=== PATIENT | male | born 1960 | race Caucasian/White ===

== ENCOUNTER 2017-01-17 10:29 | Emergency (ER) | payer MEDICARE, OTHER ==
[~2017-01-17 10:29] MED LIST: AMIO200T PO; AMIO400T2 PO; AMIT10 PO; ASPI81TA11 PO; ASPI81TA82 PO; ATOR40TA PO; ATOR40TA49 PO; BACL10TA PO; GABA600T PO; LORTA10 PO; METO25 PO; MULT-34 PO; NICO21DI24 TD; NICO21T; TAB-TAB PO; ULTR50TA PO
[2017-01-17 10:30] VITALS: BP 138/76; PULSE 82; RESP 20; TEMP 98.8; O2SAT 99
[2017-01-17] MEDS ORDERED: AMIO200T PO (10:41)
[2017-01-17] MEDS ORDERED: AMIT10TA6 PO (10:41)
[2017-01-17] MEDS ORDERED: ASPI81CH PO (10:41)
[2017-01-17] MEDS ORDERED: TRAM50TA PO (10:41)
[2017-01-17] MEDS ORDERED: ATOR40TA16 PO (10:41)
[2017-01-17] MEDS ORDERED: METO25TA3 PO (10:41)
[2017-01-17] MEDS ORDERED: GABA600T PO (10:41)
[2017-01-17] MEDS ORDERED: CEPH-460 PO (10:44)
[2017-01-17] MEDS ORDERED: BACT800T5 PO (10:44)
--- NOTE | 2017-01-17 10:44 | PD ---
HPI Chief Complaint: Skin Problem Time Seen by Provider: 10:42 Travel History International Travel<30 days: No Contact w/Intl Traveler<30days: No Traveled to known affect area: No History of Present Illness HPI 56-year-old male presents to emergency Department with complaint of a possible spider bite to his right lower leg that occurred on . He is concerned it is infected. He denies fever, vomiting. He says it's been draining clear, bloody drainage. Denies paresthesias, loss of sensation, decreased range of motion, decreased strength to the affected extremity. Says the area is painful. He is up-to-date on tetanus vaccination. Has been taking Tylenol for the pain with good relief. Has not taken any other medications or any other treatments to alleviate his symptoms. No known allergies. Has no medical complaints. No modifying factors or associated signs and symptoms. PFSH Past Medical History Arthritis: Yes Asthma: Yes ( A CHILD) Autoimmune Disease: No Blood Disorders: No Anxiety: No Depression: No Heart Rhythm Problems: No Cancer: No Cardiac Catheterization: No Cardiovascular Problems: No High Cholesterol: No Chemotherapy: No Chest Pain: No Congestive Heart Failure: No COPD: No Cerebrovascular Accident: No Diabetes: No Diminished Hearing: No Endocrine: No GERD: No Genitourinary: No Headaches: Yes Hiatal Hernia: No Immune Disorder: No Implanted Vascular Access Dvce: Yes Kidney Stones: No Musculoskeletal: Yes Neurologic: Yes Psychiatric: No Reproductive: No Respiratory: Yes Migraines: No Radiation Therapy: No Renal Failure: No Seizures: No Sickle Cell Disease: No Sleep Apnea: No Thyroid Disease: No Ulcer: No Past Surgical History Abdominal Surgery: No AICD: No Arteriovenous Shunt: No Body Medical Devices: PINS IN FEMUR Cardiac Surgery: No Coronary Artery Bypass Graft: No Ear Surgery: No Endocrine Surgery: No Eye Surgery: No Genitourinary Surgery: No Gynecologic Surgery: No Insulin Pump: No Joint Replacement: No Oral Surgery: No Pacemaker: No Thoracic Surgery: No Other Surgery: Yes Social History Alcohol Use: Yes (6 PACK 3X A WEEK) Tobacco Use: Yes ( ONE PPD X 20 YEARS) Substance Use: Yes (PT REPORTED PREVIOUS USE OF COCAINE.) Allergies-Medications (Allergen,Severity, Reaction): Coded Allergies: No Known Allergies (Verified , 01/17/17) Reported Meds & Prescriptions Reported Meds & Active Scripts Active Bactrim DS (Sulfamethoxazole-Trimethoprim) 800-160 Mg Tab 1 Tab PO BID 10 Days Keflex (Cephalexin) 500 Mg Cap 500 Mg PO Q8H 10 Days Reported Amitriptyline (Amitriptyline HCl) 10 Mg Tab 10 Mg PO HS Amiodarone (Amiodarone HCl) 200 Mg Tab 200 Mg PO BID Aspirin 81 Mg Chew 81 Mg PO ONCE Atorvastatin (Atorvastatin Calcium) 40 Mg Tab 40 Mg PO HS Gabapentin 600 Mg Tab 600 Mg PO TID Metoprolol Tartrate 25 Mg Tab 25 Mg PO BID Tramadol (Tramadol HCl) 50 Mg Tab 50 Mg PO Q6H PRN Review of Systems Except as stated in HPI: all other systems reviewed are Neg Physical Exam Narrative GENERAL: Well-nourished, well-developed male patient, in no acute distress; afebrile, nontoxic-appearing SKIN: Warm and dry. Approximately 1 cm in diameter scabbed area noted to the right rod with minimal amount of bloody drainage; no purulent drainage noted; no surrounding erythema or edema. Right lower extremity supple and non-tense and 2+ pedal pulse and sensory intact without erythema or edema. HEAD: Atraumatic. Normocephalic. EYES: Pupils equal and round. No scleral icterus. No injection or drainage. ENT: Mucosa pink and moist. Airway patent. NECK: Trachea midline. CARDIOVASCULAR: Regular rate. RESPIRATORY: No accessory muscle use. GASTROINTESTINAL: Flat. MUSCULOSKELETAL: No obvious deformities. No clubbing. No cyanosis. No edema. NEUROLOGICAL: Awake and alert. Oriented 3. No obvious cranial nerve deficits. Motor grossly within normal limits. Normal speech. PSYCHIATRIC: Appropriate mood and affect; insight and judgment normal. Data Data Last Documented VS Vital Signs Date Time Temp Pulse Resp B/P Pulse Ox O2 Delivery O2 Flow Rate FiO2 01/17/17 10:39 16 01/17/17 10:30 98.8 82 138/76 99 Room Air MDM Medical Decision Making Medical Screen Exam Complete: Yes Emergency Medical Condition: Yes Medical Record Reviewed: Yes Differential Diagnosis Abrasion, wounds, wound infection, insect bite, abscess Narrative Course 56-year-old male with approximately a 1 cm wound to the right rod that does not appear to be infected. The area is draining minimal amount of bloody drainage. Wound culture pending. The patient is afebrile and nontoxic- appearing. He denies fever, vomiting. Up-to-date on tetanus vaccination. Patient is concerned of infection and is requesting prescriptions for antibiotics. I discussed signs of infection and antibiotics and the patient verbalized understanding and agreement. I will prescribe antibiotic for patient 's request. Keflex and Bactrim prescribed for home. Patient verbalizes understanding and agreement with treatment plan. Patient is medically cleared and stable for discharge. Discussed reasons to return to the emergency department. Instructed patient to follow up with primary care provider. Patient agrees with treatment plan. The patients vital signs are stable and the patient is stable for outpatient follow-up and treatment. Patient discharged home, stable and in no acute distress. Diagnosis Primary Impression: Wound of right lower extremity Qualified Code: S81.801A - Wound of right lower extremity, initial encounter Referrals: Primary Care Physician Patient Instructions: Acute Wound Care (ED), General Instructions Departure Forms: Tests/Procedures, Work Release Enter return to work date: Jan 17, 2017 Additional Instructions: Antibiotics as prescribed Keep area clean and dry Ibuprofen or Tylenol as instructed and as needed for pain and inflammation Follow-up with primary care provider Return to the emergency department immediately with worsening of symptoms Med/Other Pt SpecificInfo: Prescription(s) given Scripts Sulfamethoxazole-Trimethoprim (Bactrim DS)800-160 Mg Tab1 Tab PO BID 10 Days Ref 0 Prov:Tiffany Moses 01/17/17 Cephalexin (Keflex)500 Mg [id number] Mg PO Q8H 10 Days Ref 0 Prov:Tiffany Moses 01/17/17 Disposition: 01 DISCHARGE HOME Condition: Stable Tiffany Moses Jan 17, 2017 10:44
[2017-01-17 10:55] VITALS: BP 120/81; TEMP 97.7
== END 2017-01-17 10:52 | disposition home or self-care (01) ==
LOC: NEPK 10:29
DX: S81.801A Unspecified open wound, right lower leg, initial encounter (principal); X58.XXXA Exposure to other specified factors, initial encounter; F17.210 Nicotine dependence, cigarettes, uncomplicated
CPT/HCPCS: 86403; 87070; 99284

== ENCOUNTER 2017-01-20 14:33 | Emergency (ER) | payer MEDICARE, MEDICAID ==
[~2017-01-20] VITALS: Ht 180.3 cm; Wt 79.5 kg
[~2017-01-20 14:33] MED LIST changes: -AMIO400T2 PO; -AMIT10 PO; +AMIT10TA6 PO; +ASPI81CH PO; -ASPI81TA11 PO; -ASPI81TA82 PO; -ATOR40TA PO; +ATOR40TA16 PO; -ATOR40TA49 PO; -BACL10TA PO; +BACT800T5 PO; +CEPH-460 PO; -LORTA10 PO; -METO25 PO; +METO25TA3 PO; -MULT-34 PO; -NICO21DI24 TD; -NICO21T; -TAB-TAB PO; +TRAM50TA PO; -ULTR50TA PO
[2017-01-20 14:34] VITALS: BP 158/80; PULSE 92; RESP 16; TEMP 99.7; O2SAT 99
[2017-01-20] MEDS ORDERED: SODIUM CHLOR 0.9% 1000 ML INJ 1,000 ML IV SCH (16:14)
[2017-01-20 16:15] VITALS: BP 145/82; PULSE 85; RESP 18; TEMP 100.3; O2SAT 96
[2017-01-20] MEDS ORDERED: KETOROLAC TROMETHAMINE 30 MG/ML (IVP) VIAL IV PUSH ONE (16:15)
--- NOTE | 2017-01-20 16:16 | PD ---
HPI Chief Complaint: Bite or Sting Time Seen by Provider: 16:06 Travel History International Travel<30 days: No Contact w/Intl Traveler<30days: No Traveled to known affect area: No History of Present Illness HPI 56-year-old male presents for evaluation of redness to the anterior right rod region. He reports that he noticed a wound there several days ago. He believes that he may been bitten by a spider although he does not recall any bug bites or puncture wounds. He was seen here in January 17 for wound culture was performed, this grew out group A strep. He was started on Bactrim and Keflex however he did not get these prescriptions filled until this morning. He has not taken Bactrim and Keflex one time. He presents today because he has had worsening pain is an aching pain in his right lower extremity which is worse with walking. He has had no fevers or chills at home. No significant past medical history. He has no other complaints. PFSH Past Medical History Arthritis: Yes Asthma: Yes ( A CHILD) Autoimmune Disease: No Blood Disorders: No Anxiety: No Depression: No Heart Rhythm Problems: No Cancer: No Cardiac Catheterization: No Cardiovascular Problems: No High Cholesterol: No Chemotherapy: No Chest Pain: No Congestive Heart Failure: No COPD: No Cerebrovascular Accident: No Diabetes: No Diminished Hearing: No Endocrine: No GERD: No Genitourinary: No Headaches: Yes Hiatal Hernia: No Immune Disorder: No Implanted Vascular Access Dvce: Yes Kidney Stones: No Musculoskeletal: Yes Neurologic: Yes Psychiatric: No Reproductive: No Respiratory: Yes Migraines: No Radiation Therapy: No Renal Failure: No Seizures: No Sickle Cell Disease: No Sleep Apnea: No Thyroid Disease: No Ulcer: No Past Surgical History Abdominal Surgery: No AICD: No Arteriovenous Shunt: No Body Medical Devices: PINS IN FEMUR Cardiac Surgery: No Coronary Artery Bypass Graft: No Ear Surgery: No Endocrine Surgery: No Eye Surgery: No Genitourinary Surgery: No Gynecologic Surgery: No Insulin Pump: No Joint Replacement: No Oral Surgery: No Pacemaker: No Thoracic Surgery: No Other Surgery: Yes Social History Alcohol Use: Yes (6 PACK 3X A WEEK) Tobacco Use: Yes ( ONE PPD X 20 YEARS) Substance Use: Yes (PT REPORTED PREVIOUS USE OF COCAINE.) Allergies-Medications (Allergen,Severity, Reaction): Coded Allergies: No Known Allergies (Verified , 01/20/17) Reported Meds & Prescriptions Reported Meds & Active Scripts Active Bactrim DS (Sulfamethoxazole-Trimethoprim) 800-160 Mg Tab 1 Tab PO BID 10 Days Keflex (Cephalexin) 500 Mg Cap 500 Mg PO Q8H 10 Days Reported Amitriptyline (Amitriptyline HCl) 10 Mg Tab 10 Mg PO HS Amiodarone (Amiodarone HCl) 200 Mg Tab 200 Mg PO BID Aspirin 81 Mg Chew 81 Mg PO ONCE Atorvastatin (Atorvastatin Calcium) 40 Mg Tab 40 Mg PO HS Gabapentin 600 Mg Tab 600 Mg PO TID Metoprolol Tartrate 25 Mg Tab 25 Mg PO BID Tramadol (Tramadol HCl) 50 Mg Tab 50 Mg PO Q6H PRN Review of Systems Except as stated in HPI: all other systems reviewed are Neg Physical Exam Narrative GENERAL: Well-developed well-nourished male in no acute distress SKIN: Warm and dry. Erythematous changes noted to the anterior right rod region. There is some central excoriation and necrosis of the skin. HEAD: Atraumatic. Normocephalic. EYES: Pupils equal and round. No scleral icterus. No injection or drainage. ENT: No nasal bleeding or discharge. Mucous membranes pink and moist. NECK: Trachea midline. No JVD. CARDIOVASCULAR: Regular rate and rhythm. No murmur appreciated. RESPIRATORY: No accessory muscle use. Clear to auscultation. Breath sounds equal bilaterally. GASTROINTESTINAL: Abdomen soft, non-tender, nondistended. Hepatic and splenic margins not palpable. MUSCULOSKELETAL: No obvious deformities. No edema. NEUROLOGICAL: Awake and alert. No obvious cranial nerve deficits. Motor grossly within normal limits. Normal speech. Data Data Last Documented VS Vital Signs Date Time Temp Pulse Resp B/P Pulse Ox O2 Delivery O2 Flow Rate FiO2 01/20/17 16:15 100.3 85 18 96 Room Air 01/20/17 14:34 158/80 Orders Lactic Acid Sepsis Protocol (01/20/17 16:14) Complete Blood Count With Diff (01/20/17 16:14) Basic Metabolic Panel (Bmp) (01/20/17 16:14) Tibia/Fibula (Ap/Lat) (01/20/17 ) Sodium Chlor 0.9% 1000 Ml Inj (Ns 1000 M (01/20/17 16:14) Ketorolac Inj (Toradol Inj) (01/20/17 16:15) Blood Culture (01/20/17 16:16) Cefazolin 2 Gm Premix (Ancef 2 Gm Premix (01/20/17 16:30) Labs Laboratory Tests Test 01/20/17 01/20/17 16:28 16:40 White Blood Count 15.5 TH/MM3 Red Blood Count 5.05 MIL/MM3 Hemoglobin 15.4 GM/DL Hematocrit 47.0 % Mean Corpuscular Volume 93.0 FL Mean Corpuscular Hemoglobin 30.5 PG Mean Corpuscular Hemoglobin 32.8 % Concent Red Cell Distribution Width 14.4 % Platelet Count 208 TH/MM3 Mean Platelet Volume 8.6 FL Neutrophils (%) (Auto) 77.3 % Lymphocytes (%) (Auto) 10.5 % Monocytes (%) (Auto) 9.8 % Eosinophils (%) (Auto) 1.9 % Basophils (%) (Auto) 0.5 % Neutrophils # (Auto) 11.9 TH/MM3 Lymphocytes # (Auto) 1.6 TH/MM3 Monocytes # (Auto) 1.5 TH/MM3 Eosinophils # (Auto) 0.3 TH/MM3 Basophils # (Auto) 0.1 TH/MM3 CBC Comment DIFF FINAL Differential Comment Sodium Level 135 MEQ/L Potassium Level 3.9 MEQ/L Chloride Level 100 MEQ/L Carbon Dioxide Level 27.9 MEQ/L Anion Gap 7 MEQ/L Blood Urea Nitrogen 10 MG/DL Creatinine 1.01 MG/DL Estimat Glomerular Filtration 76 ML/MIN Rate Random Glucose 102 MG/DL Calcium Level 9.2 MG/DL Lactic Acid Level 1.2 mmol/L MDM Medical Decision Making Medical Screen Exam Complete: Yes Emergency Medical Condition: Yes Medical Record Reviewed: Yes Differential Diagnosis Cellulitis, sepsis, osteomyelitis, erysipelas Narrative Course 56-year-old male who was seen here in January 17 presents now with worsening redness and pain to the right lower extremity. On examination his temperature is 100.3. He is slightly tachycardic. He unfortunately did not start the antibiotics until this morning secondary to financial restraints. The wound culture performed on January 17 has grown group A strep. The patient's lab work is been reviewed. Notable for leukocytosis with a WBC count of 15.5, MB is normal, lactic acid is within normal limits. It is reasonable to attempt to treat this patient has an outpatient, discussed signs and symptoms that would warrant returning to the emergency room for inpatient admission for IV antibiotics. He is agreeable with this plan. Blood cultures are currently pending and will be followed up on if positive. Diagnosis Primary Impression: Cellulitis of right lower extremity Additional Instructions: Take the antibiotics as prescribed. Warm compresses to the affected area several times a day 10 minutes at a time. If you develop evidence of worsening infection such as fevers, increasing redness, red streaks up the leg, return to the emergency room. Med/Other Pt SpecificInfo: No Change to Meds Disposition: 01 DISCHARGE HOME Condition: Stable Abhijeet Silvestre Jan 20, 2017 16:16
[2017-01-20] MEDS ORDERED: ceFAZolin 2 GM PREMIX 50 ML IV ONE (16:30)
--- NOTE | 2017-01-20 16:35 | RADRPT ---
EXAM DATE/TIME: 01/20/2017 16:18 [facility] COMPARISON: No previous studies available for comparison. INDICATIONS : Right tibia pain and insect bite infection. MEDICAL HISTORY : None. SURGICAL HISTORY : None. ENCOUNTER: Initial ACUITY: 4 - 6 days PAIN SCORE: 10/10 LOCATION: Right anterior middle tibia. FINDINGS: Two view examination of the right tibia demonstrates no evidence of fracture or dislocation. Bony mi neralization is normal. The soft tissue structures are intact. CONCLUSION: No acute disease. Estevan Trinidad MD on January 20, 2017 at 16:32 Board Certified Radiologist. This report was verified electronically.
[2017-01-20 17:03] LABS: AUTOMATED NEUTROPHIL # 11.9 TH/MM3 (1.8-7.7); BASOPHIL # 0.1 TH/MM3 (0-0.2); BASOPHIL % 0.5 % (0.0-2.0); EOSINOPHIL # 0.3 TH/MM3 (0-0.4); EOSINOPHIL % 1.9 % (0.0-4.0); HEMO FLAGS DIFF FINAL; LYMPH % 10.5 % (9.0-44.0); LYMPHOCYTE # 1.6 TH/MM3 (1.0-4.8); MEAN CORPUSCULAR HEMOGLOBIN 30.5 PG (27.0-34.0); MEAN CORPUSCULAR HGB CONC 32.8 % (32.0-36.0); MONO % 9.8 % (0.0-8.0); NEUT % 77.3 % (16.0-70.0); PLATELET COUNT 208 TH/MM3 (150-450); RED BLOOD COUNT 5.05 MIL/MM3 (4.50-5.90); RED CELL DISTRIBUTION WIDTH 14.4 % (11.6-17.2); WHITE BLOOD COUNT 15.5 TH/MM3 (4.0-11.0)
[2017-01-20 17:27] LABS: BICARBONATE 27.9 MEQ/L (21.0-32.0); POTASSIUM 3.9 MEQ/L (3.5-5.1)
[2017-01-20 18:11] VITALS: PULSE 78; O2SAT 98
[2017-01-20 18:42] VITALS: PULSE 80; RESP 18
== END 2017-01-20 18:42 | disposition home or self-care (01) ==
LOC: NEPD 14:33
DX: L03.115 Cellulitis of right lower limb (principal); B95.0 Streptococcus, group A, as the cause of diseases classified elsewhere; D72.829 Elevated white blood cell count, unspecified; F17.200 Nicotine dependence, unspecified, uncomplicated; Z87.39 Personal history of other diseases of the musculoskeletal system and connective tissue; Z86.69 Personal history of other diseases of the nervous system and sense organs
CPT/HCPCS: 73590; 80048; 83605; 85025; 87040; 96365; 96375; 99284; J0690; J1885; J7030

== ENCOUNTER 2017-07-29 20:54 | Emergency (ER) | payer MEDICARE, MEDICAID ==
[~2017-07-29 20:54] MED LIST changes: +ASPI-516 PO; -ASPI81CH PO
[2017-07-29 20:56] VITALS: BP 145/95; PULSE 74; RESP 16; TEMP 98; O2SAT 98
--- NOTE | 2017-07-29 21:49 | PD ---
HPI Chief Complaint: Skin Problem Time Seen by Provider: 21:48 Travel History International Travel<30 days: No Contact w/Intl Traveler<30days: No Traveled to known affect area: No History of Present Illness HPI Patient is a 57-year-old male presenting to emergency department for evaluation of bilateral foot pain. Patient states he was diagnosed with a foot fungus a few weeks ago, he was prescribed a powder which he states is not working in his rash has spread. Patient states his feet are painful, burning sensation. He describes it. His pain is a 7 out of 10. He denies any history of diabetes. He denies any alleviating factors, pain is exacerbated with movement. He denies a fever, chills, nausea, vomiting, chest pain or shortness of breath. PFSH Past Medical History Arthritis: Yes Asthma: Yes ( A CHILD) Autoimmune Disease: No Blood Disorders: No Anxiety: No Depression: No Heart Rhythm Problems: No Cancer: No Cardiac Catheterization: No Cardiovascular Problems: No High Cholesterol: No Chemotherapy: No Chest Pain: No Congestive Heart Failure: No COPD: No Cerebrovascular Accident: No Diabetes: No Diminished Hearing: No Endocrine: No Gastrointestinal Disorders: No GERD: No Genitourinary: No Headaches: Yes Hiatal Hernia: No Heparin Induced Thrombocytopen: No Hypertension: No Immune Disorder: No Implanted Vascular Access Dvce: Yes Kidney Stones: No Musculoskeletal: Yes Neurologic: Yes Psychiatric: No Reproductive: No Respiratory: Yes Migraines: No Radiation Therapy: No Renal Failure: No Seizures: No Sickle Cell Disease: No Sleep Apnea: No Thyroid Disease: No Ulcer: No Past Surgical History Abdominal Surgery: No AICD: No Arteriovenous Shunt: No Body Medical Devices: PINS IN FEMUR Cardiac Surgery: Yes Coronary Artery Bypass Graft: No Ear Surgery: No Endocrine Surgery: No Eye Surgery: No Genitourinary Surgery: No Gynecologic Surgery: No Insulin Pump: No Joint Replacement: No Neurologic Surgery: No Oral Surgery: No Pacemaker: No Thoracic Surgery: No Other Surgery: Yes Social History Alcohol Use: Yes (1 6 PK A WEEK) Tobacco Use: Yes (1/2 PPD) Substance Use: No (QUIT 2 MONTHS) Allergies-Medications (Allergen,Severity, Reaction): Coded Allergies: No Known Allergies (Verified , 01/20/17) Reported Meds & Prescriptions Reported Meds & Active Scripts Active Bactrim DS (Sulfamethoxazole-Trimethoprim) 800-160 Mg Tab 1 Tab PO BID 10 Days Keflex (Cephalexin) 500 Mg Cap 500 Mg PO Q8H 10 Days Reported Amitriptyline (Amitriptyline HCl) 10 Mg Tab 10 Mg PO HS Amiodarone (Amiodarone HCl) 200 Mg Tab 200 Mg PO BID Aspirin 81 Mg Chew 81 Mg PO ONCE Atorvastatin (Atorvastatin Calcium) 40 Mg Tab 40 Mg PO HS Gabapentin 600 Mg Tab 600 Mg PO TID Metoprolol Tartrate 25 Mg Tab 25 Mg PO BID Tramadol (Tramadol HCl) 50 Mg Tab 50 Mg PO Q6H PRN Review of Systems Except as stated in HPI: all other systems reviewed are Neg Musculoskeletal: Positive: Pain Skin: Positive Rash, Positive Itching Physical Exam Narrative GENERAL: Well-developed, well-nourished, alert male. SKIN: Warm and dry. Left foot with crusted lesions in between second and third toes. No erythema or induration noted. HEAD: Normocephalic. EYES: No scleral icterus. No injection or drainage. CARDIOVASCULAR: Regular rate RESPIRATORY: No increased work of breathing MUSCULOSKELETAL: No cyanosis, or edema. Data Data Last Documented VS Vital Signs Date Time Temp Pulse Resp B/P (MAP) Pulse Ox O2 Delivery O2 Flow Rate FiO2 12/17 20:56 98.0 74 16 145/95 (112) 98 Room Air MDM Medical Decision Making Medical Screen Exam Complete: Yes Emergency Medical Condition: Yes Interpretation(s) Vital Signs Date Time Temp Pulse Resp B/P (MAP) Pulse Ox O2 Delivery O2 Flow Rate FiO2 12/17 20:56 98.0 74 16 145/95 (112) 98 Room Air Differential Diagnosis Impetigo versus tinea versus dermatitis versus cellulitis versus other Narrative Course Patient is a 57-year-old male presenting for evaluation of foot rash. His vital signs are stable, patient is awaiting bed placement. Patient presented back to triage stating that he did not have time to wait, he needed to get back on the bus to go to [place]. Patient was encouraged to stay as his bed was nearly available. He stated that he would come back in the morning. AMA: The risks of leaving against medical advice without further evaluation treatment were discussed with the patient. These risks include cardiac dysfunction, cardiac dysrhythmia, possible heart attack, possible stroke or . The patient indicated understanding of these risks and appeared to have the capacity to make this decision. Diagnosis Primary Impression: Left against medical advice Vanda Bowden Jul 29, 2017 21:48
== END 2017-07-29 21:48 | disposition left against medical advice (07) ==
LOC: NED 20:54
DX: R21 Rash and other nonspecific skin eruption (principal); M19.90 Unspecified osteoarthritis, unspecified site; J45.909 Unspecified asthma, uncomplicated; F17.200 Nicotine dependence, unspecified, uncomplicated; Z79.82 Long term (current) use of aspirin; Z79.899 Other long term (current) drug therapy
CPT/HCPCS: 99281

== ENCOUNTER 2017-11-17 09:02 | Emergency (ER) | payer MEDICAID, MEDICARE, OTHER ==
[2017-11-17 09:09] VITALS: BP 124/63; PULSE 70; RESP 16; TEMP 98.1; O2SAT 97
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
[2017-11-17] MEDS ORDERED: NAPR500T2 PO (10:21)
[2017-11-17] MEDS ORDERED: MEDR4PAK PO (10:21)
--- NOTE | 2017-11-17 10:22 | PD ---
HPI Chief Complaint: Pain: Acute or Chronic Time Seen by Provider: 10:18 Travel History International Travel<30 days: No Contact w/Intl Traveler<30days: No Traveled to known affect area: No History of Present Illness HPI 57-year-old male presents to the emergency department with complaint of chronic left knee pain that worsened yesterday. Denies new or recent injury. Last had an MRI in 2008 and was told that nothing was wrong. Denies fever, vomiting. Denies paresthesias, loss of sensation, decreased range of motion, decreased strength to the affected extremity. Has been using a knee brace and a cane for support. Pain is worse with flexion. Better with the knee brace and assistance with a cane. Has been taking Tylenol and gabapentin for symptom management. Rates pain 01/17. Describes it as shooting pain. Primary care provider is Dr. Yoon. No known allergies. History of chronic back pain. Denies other significant past medical history. Has no other medical complaints. No other modifying factors or associated signs and symptoms. PFSH Past Medical History Arthritis: Yes Asthma: Yes ( A CHILD) Autoimmune Disease: No Blood Disorders: No Anxiety: No Depression: No Heart Rhythm Problems: No Cancer: No Cardiac Catheterization: No Cardiovascular Problems: No High Cholesterol: No Chemotherapy: No Chest Pain: No Congestive Heart Failure: No COPD: No Cerebrovascular Accident: No Coronary Artery Disease: Yes Diabetes: No Diminished Hearing: No Endocrine: No Gastrointestinal Disorders: No GERD: No Genitourinary: No Headaches: Yes Hiatal Hernia: No Heparin Induced Thrombocytopen: No Hypertension: No Immune Disorder: No Implanted Vascular Access Dvce: Yes Kidney Stones: No Musculoskeletal: Yes Neurologic: Yes Psychiatric: No Reproductive: No Respiratory: Yes Migraines: No Radiation Therapy: No Renal Failure: No Seizures: No Sickle Cell Disease: No Sleep Apnea: No Thyroid Disease: No Ulcer: No Tetanus Vaccination: < 5 Years Past Surgical History Abdominal Surgery: No AICD: No Arteriovenous Shunt: No Body Medical Devices: PINS IN FEMUR Cardiac Surgery: Yes (CABG X 5) Coronary Artery Bypass Graft: No Ear Surgery: No Endocrine Surgery: No Eye Surgery: No Genitourinary Surgery: No Gynecologic Surgery: No Insulin Pump: No Joint Replacement: No Neurologic Surgery: No Oral Surgery: No Pacemaker: No Thoracic Surgery: No Other Surgery: Yes Family History Family Myocardial Infarction: Yes Social History Alcohol Use: Yes (1 6 PK A WEEK) Tobacco Use: Yes (1/2 PPD) Substance Use: No (QUIT ) Allergies-Medications (Allergen,Severity, Reaction): Coded Allergies: No Known Allergies (Verified Adverse Reaction, Unknown, 11/17/17) Reported Meds & Prescriptions Reported Meds & Active Scripts Active Walker/Adult/Folding (Device) 1 Mis Mis Ea .XX DIRECTED Naproxen 500 Mg Tab 500 Mg PO BID PRN Medrol Dosepak (Methylprednisolone) 4 Mg Dspk 4 Mg PO DIRECTED Per Pharmacist direction Review of Systems Except as stated in HPI: all other systems reviewed are Neg Physical Exam Narrative GENERAL: Well-nourished, well-developed male patient, in no acute distress; afebrile, nontoxic-appearing SKIN: Warm and dry. HEAD: Atraumatic. Normocephalic. EYES: Pupils equal and round. No scleral icterus. No injection or drainage. ENT: Mucosa pink and moist. Airway patent. NECK: Trachea midline. CARDIOVASCULAR: Regular rate. RESPIRATORY: No accessory muscle use. MUSCULOSKELETAL: Left knee nonedematous, nonerythematous, and without ecchymosis ; full range of motion and flexion to 90; point tenderness to the lateral aspect and anterior aspect just below the patella; joint stable with negative drawer test; no obvious deformity. Left lower extremity is supple and non- tense with 2+ pedal pulse and sensory intact and without erythema or edema. Ambulatory in room with a limp to the left lower extremity. NEUROLOGICAL: Awake and alert. Oriented 3. No obvious cranial nerve deficits. Motor grossly within normal limits. Normal speech. PSYCHIATRIC: Appropriate mood and affect; insight and judgment normal. Data Data Last Documented VS Vital Signs Date Time Temp Pulse Resp B/P (MAP) Pulse Ox O2 Delivery O2 Flow Rate FiO2 11/17/17 09:09 98.1 70 16 124/63 (83) 97 Orders Orders Knee, Complete (4vws) (11/17/17 ) Ed Discharge Order (11/17/17 10:29) [facility] Medical Decision Making Medical Screen Exam Complete: Yes Emergency Medical Condition: Yes Medical Record Reviewed: Yes Differential Diagnosis Arthritis, bursitis, chronic knee pain Narrative Course 57-year-old male with chronic left knee pain with worsening yesterday. He has a knee brace in place and a cane for assistance. Left knee x-ray ordered in triage and concludes: Knee X-Ray 11/17/17 0000 Signed Impressions: Service Date/Time: Friday, November 17, 2017 09:25 - CONCLUSION: 1. No acute fracture or dislocation. 2. Mild to moderate degenerative changes involving the patellofemoral joint and mild degenerative changes involving the medial femoral tibial joint. 3. Tiny knee joint effusion. 4. Spurring at the insertion of the patellar ligament on the proximal tibia. Estevan Trinidad MD Patient provided a copy of the x-ray report. Medrol Dosepak, naproxen, walker for prescribed for home. Instructed patient to follow-up with orthopedics. Instructed patient to follow up with primary care provider. Patient verbalizes understanding and agreement with treatment plan. Patient is medically cleared and stable for discharge. Discussed reasons to return to the emergency department. Patient agrees with treatment plan. The patients vital signs are stable and the patient is stable for outpatient follow-up and treatment. Patient discharged home, stable and in no acute distress. Diagnosis Primary Impression: Left knee pain Qualified Codes: M25.562 - Pain in left knee Referrals: [facility] Orthopaedic Surgeon Primary Care Physician Patient Instructions: Arthritis (ED), Crutch Instructions (ED), General Instructions, Knee Pain (ED) Additional Instructions: Tylenol or ibuprofen as needed and as directed to reduce pain and inflammation Rest, ice, compress, and elevate extremity to decrease pain and inflammation Knee brace for support Crutches for support Avoid aggravating activity; increase activity as tolerated Follow-up with primary care provider Follow-up with orthopedics Return to the emergency department immediately with worsening symptoms Med/Other Pt SpecificInfo: Prescription(s) given Scripts Walker/Adult/Folding (Walker/Adult/Folding) 1 Mis Mis EA .XX DIRECTED, #1 0 Refills Prov: Tiffany Moses AUDIO VISUAL ARTS DIRECTOR 11/17/17 Naproxen (Naproxen) 500 Mg Tab 500 MG PO BID Y for PAIN SCALE 1 TO 10, #20 TAB 0 Refills Prov: Tiffany Moses AUDIO VISUAL ARTS DIRECTOR 11/17/17 Methylprednisolone Dosepak (Medrol Dosepak) 4 Mg Dspk 4 MG PO DIRECTED, #1 DSPK 0 Refills Per Pharmacist direction Prov: Tiffany Moses AUDIO VISUAL ARTS DIRECTOR 4/10/18 Disposition: 01 DISCHARGE HOME Condition: Stable Rassi,Tiffany K AUDIO VISUAL ARTS DIRECTOR Nov 17, 2017 10:22
[2017-11-17] MEDS ORDERED: WALKER/ADULT/FO1 MIS (10:28)
== END 2017-11-17 10:36 | disposition home or self-care (01) ==
LOC: NEPK 09:02
DX: M25.562 Pain in left knee (principal); M17.12 Unilateral primary osteoarthritis, left knee; M25.462 Effusion, left knee; M19.90 Unspecified osteoarthritis, unspecified site; J45.909 Unspecified asthma, uncomplicated; I25.10 Atherosclerotic heart disease of native coronary artery without angina pectoris; F17.200 Nicotine dependence, unspecified, uncomplicated
CPT/HCPCS: 73564; 99283

== ENCOUNTER 2018-01-09 22:41 | Emergency (ER) | payer MEDICARE, OTHER ==
[~2018-01-09] VITALS: Ht 182.9 cm; Wt 74.0 kg
[~2018-01-09 22:41] MED LIST changes: -AMIO200T PO; -AMIT10TA6 PO; -ASPI-516 PO; -ATOR40TA16 PO; -BACT800T5 PO; -CEPH-460 PO; -GABA600T PO; +MEDR4PAK PO; -METO25TA3 PO; +NAPR500T2 PO; -TRAM50TA PO; +WALKER/ADULT/FO1 MIS
[2018-01-09 22:49] VITALS: BP 159/80; PULSE 71; RESP 16; TEMP 98.5; O2SAT 94
[2018-01-10] MEDS ORDERED: SODIUM CHLOR 0.9% 1000 ML INJ 1,000 ML IV SCH (00:15)
[2018-01-10 00:31] VITALS: BP 132/63; PULSE 63; RESP 14; O2SAT 96
[2018-01-10 00:42] LABS: AUTOMATED NEUTROPHIL # 11.6 TH/MM3 (1.8-7.7); BASOPHIL # 0.1 TH/MM3 (0-0.2); BASOPHIL % 0.5 % (0.0-2.0); EOSINOPHIL # 0.1 TH/MM3 (0-0.4); EOSINOPHIL % 0.6 % (0.0-4.0); HEMATOCRIT 44.4 % (39.0-51.0); HEMOGLOBIN 15.1 GM/DL (13.0-17.0); LYMPH % 5.4 % (9.0-44.0); LYMPHOCYTE # 0.7 TH/MM3 (1.0-4.8); MEAN CORPUSCULAR HEMOGLOBIN 33.6 PG (27.0-34.0); MEAN PLATELET VOLUME 8.2 FL (7.0-11.0); MONOCYTE # 0.9 TH/MM3 (0-0.9); NEUT % 86.5 % (16.0-70.0); PLATELET COUNT 220 TH/MM3 (150-450); RED BLOOD COUNT 4.49 MIL/MM3 (4.50-5.90); RED CELL DISTRIBUTION WIDTH 13.6 % (11.6-17.2); WHITE BLOOD COUNT 13.5 TH/MM3 (4.0-11.0)
--- NOTE | 2018-01-10 00:59 | PD ---
HPI Chief Complaint: OD/ Ingestion Time Seen by Provider: 00:12 Travel History International Travel<30 days: No Contact w/Intl Traveler<30days: No Traveled to known affect area: No History of Present Illness HPI 57-year-old male found unresponsive administered Narcan IM by police and then Narcan IV by paramedics. Patient here denies substance use. Patient denies suicidal or homicidal ideation. Patient reports no recent illness or chest pain. Patient unable to provide much further information at this time as drowsy. Admits to alcohol use and tobacco use. PFSH Past Medical History Narrative Medical Arthritis asthma CAD CABG; tobacco use, alcohol use; nursing notes reviewed Arthritis: Yes Asthma: Yes ( A CHILD) Autoimmune Disease: No Blood Disorders: No Anxiety: No Depression: No Heart Rhythm Problems: No Cancer: No Cardiac Catheterization: No Cardiovascular Problems: Yes (BYPASS X5 2015) High Cholesterol: No Chemotherapy: No Chest Pain: No Congestive Heart Failure: No COPD: No Cerebrovascular Accident: No Coronary Artery Disease: Yes Diabetes: No Patient Takes Glucophage: No Diminished Hearing: No Endocrine: No Gastrointestinal Disorders: No GERD: No Genitourinary: No Headaches: Yes Hiatal Hernia: No Heparin Induced Thrombocytopen: No Hypertension: No Immune Disorder: No Implanted Vascular Access Dvce: Yes Kidney Stones: No Musculoskeletal: Yes Neurologic: Yes Psychiatric: No Reproductive: No Respiratory: Yes Immunizations Current: Yes Migraines: No Radiation Therapy: No Renal Failure: No Seizures: No Sickle Cell Disease: No Sleep Apnea: No Thyroid Disease: No Ulcer: No Tetanus Vaccination: < 5 Years Influenza Vaccination: No Past Surgical History Abdominal Surgery: No AICD: No Arteriovenous Shunt: No Body Medical Devices: PINS IN FEMUR Cardiac Surgery: Yes (CABG X 5) Coronary Artery Bypass Graft: No Ear Surgery: No Endocrine Surgery: No Eye Surgery: No Genitourinary Surgery: No Gynecologic Surgery: No Insulin Pump: No Joint Replacement: No Neurologic Surgery: No Oral Surgery: No Pacemaker: No Thoracic Surgery: No Other Surgery: Yes Family History Family Myocardial Infarction: Yes Social History Alcohol Use: Yes (1 6 PK A WEEK) Tobacco Use: Yes (08/11 PPD) Substance Use: No (QUIT ) Allergies-Medications (Allergen,Severity, Reaction): Coded Allergies: No Known Allergies (Verified Adverse Reaction, Unknown, 01/09/18) Reported Meds & Prescriptions Reported Meds & Active Scripts Active No Active Prescriptions or Reported Medications Review of Systems ROS Limitations: Clinical Condition, Poor Historian Except as stated in HPI: all other systems reviewed are Neg HENT: No: Headaches Cardiovascular: No: Chest Pain or Discomfort Respiratory: No: Shortness of Breath Gastrointestinal: No: Abdominal Pain Neurologic: No: Headache Physical Exam Narrative GENERAL: Well-developed well-nourished male no acute distress no respiratory distress; GCS 14 SKIN: Warm and dry. HEAD: Atraumatic. Normocephalic. EYES: Pupils equal and round reactive to light. Extraocular muscles intact no scleral icterus. No injection or drainage. ENT: No nasal bleeding or discharge. Mucous membranes pink and moist. NECK: Trachea midline. No JVD. CARDIOVASCULAR: Regular rate and rhythm. RESPIRATORY: No accessory muscle use. Clear to auscultation. Breath sounds equal bilaterally. GASTROINTESTINAL: Abdomen soft, non-tender, nondistended. Hepatic and splenic margins not palpable. MUSCULOSKELETAL: Extremities without clubbing, cyanosis, or edema. No obvious deformities. NEUROLOGICAL: Awake and lethargic. No obvious cranial nerve deficits. Motor grossly within normal limits. Five out of 5 muscle strength in the arms and legs. Slurring of speech. Data Data Last Documented VS Vital Signs Date Time Temp Pulse Resp B/P (MAP) Pulse Ox O2 Delivery O2 Flow Rate FiO2 01/10/18 09:35 01/10/18 06:07 54 20 98 2.00 01/10/18 04:34 Room Air 01/09/18 22:49 98.5 Orders Orders Complete Blood Count With Diff (01/09/18 22:57) Comprehensive Metabolic Panel (01/09/18 22:57) Drug Screen, Random Urine (01/09/18 22:57) Alcohol (Ethanol) (01/09/18 22:57) Salicylates (Aspirin) (01/10/18 00:12) Electrocardiogram (01/10/18 ) Sodium Chlor 0.9% 1000 Ml Inj (Ns 1000 M (01/10/18 00:15) Ct Brain W/O Iv Contrast(Rout) (01/10/18 ) Tylenol (Acetaminophen) (01/09/18 23:45) Ckmb (Isoenzyme) Profile (01/09/18 23:45) Magnesium (Mg) (01/09/18 23:45) Troponin I (01/09/18 23:45) CKMB (01/09/18 23:45) CKMB% (01/09/18 23:45) Electrocardiogram (01/10/18 00:42) Ed Discharge Order (01/10/18 09:26) Labs Laboratory Tests Test 01/09/18 23:45 01/10/18 02:00 White Blood Count 13.5 TH/MM3 Red Blood Count 4.49 MIL/MM3 Hemoglobin 15.1 GM/DL Hematocrit 44.4 % Mean Corpuscular Volume 99.0 FL Mean Corpuscular Hemoglobin 33.6 PG Mean Corpuscular Hemoglobin Concent 34.0 % Red Cell Distribution Width 13.6 % Platelet Count 220 TH/MM3 Mean Platelet Volume 8.2 FL Neutrophils (%) (Auto) 86.5 % Lymphocytes (%) (Auto) 5.4 % Monocytes (%) (Auto) 7.0 % Eosinophils (%) (Auto) 0.6 % Basophils (%) (Auto) 0.5 % Neutrophils # (Auto) 11.6 TH/MM3 Lymphocytes # (Auto) 0.7 TH/MM3 Monocytes # (Auto) 0.9 TH/MM3 Eosinophils # (Auto) 0.1 TH/MM3 Basophils # (Auto) 0.1 TH/MM3 CBC Comment DIFF FINAL Differential Comment Blood Urea Nitrogen 11 MG/DL Creatinine 0.67 MG/DL Random Glucose 117 MG/DL Total Protein 7.4 GM/DL Albumin 3.5 GM/DL Calcium Level 8.8 MG/DL Magnesium Level 1.9 MG/DL Alkaline Phosphatase 94 U/L Aspartate Amino Transf (AST/SGOT) 33 U/L Alanine Aminotransferase (ALT/SGPT) 30 U/L Total Bilirubin 0.5 MG/DL Sodium Level 132 MEQ/L Potassium Level 4.2 MEQ/L Chloride Level 93 MEQ/L Carbon Dioxide Level 26.1 MEQ/L Anion Gap 13 MEQ/L Estimat Glomerular Filtration Rate 122 ML/MIN Total Creatine Kinase 130 U/L Creatine Kinase MB 3.1 NG/ML Troponin I LESS THAN 0.02 NG/ML Salicylates Level 2.5 MG/DL Acetaminophen Level 10.6 MCG/ML Ethyl Alcohol Level LESS THAN 3 MG/DL Urine Opiates Screen POS Urine Barbiturates Screen NEG Urine Amphetamines Screen NEG Urine Benzodiazepines Screen NEG Urine Cocaine Screen POS Urine Cannabinoids Screen NEG MDM Medical Decision Making Medical Screen Exam Complete: Yes Emergency Medical Condition: Yes Medical Record Reviewed: Yes Interpretation(s) EKG: Normal sinus rhythm rate 64 right axis deviation intraventricular conduction delay no acute ST elevation or injury pattern change noted Last Impressions Head CT 01/10/18 0000 Signed Impressions: CONCLUSION: 1. No acute intracranial abnormality is seen. 2. A lacunar infarct at the right internal capsule. 3. Sinus disease. CBC & BMP Diagram 01/09/18 23:45 Total Protein 7.4, Albumin 3.5, Calcium Level 8.8, Magnesium Level 1.9, Alkaline Phosphatase 94, Aspartate Amino Transf (AST/SGOT) 33, Alanine Aminotransferase (ALT/SGPT) 30, Total Bilirubin 0.5 Vital Signs Date Time Temp Pulse Resp B/P (MAP) Pulse Ox O2 Delivery O2 Flow Rate FiO2 01/10/18 00:31 63 14 132/63 (86) 96 Room Air 01/09/18 22:49 98.5 71 16 159/80 (106) 94 troponin I: less than 0.02, not elevated Differential Diagnosis Polysubstance ingestion alcohol intoxication TIA CVA ICH arrhythmia Narrative Course IV access obtained specimens collected and sent for resulting EKG ordered placed placed on monitor this point time patient seems consistent with probable opiate overdose polysubstance ingestion responded with improved mentation after Narcan administration by police and paramedics. Patient is very drowsy but able to answer most questions appropriately with slurred speech. Will obtain basic labs and imaging study will allow patient to sleep off intoxicants and continue to monitor patient's status. Mentation continues to improve GCS 15 Patient ambulatory from exam room to bathroom and back. At this point time patient will be medically cleared and allowed to remain for ongoing "sleep it off" status Diagnosis Primary Impression: Polysubstance abuse Additional Impression: Overdose Qualified Codes: T50.901A - Poisoning by unspecified drugs, medicaments and biological substances, accidental (unintentional), initial encounter Scripts No Active Prescriptions or Reported Meds Isabella Dueñas MD Jan 10, 2018 00:59
--- NOTE | 2018-01-10 01:02 | RADRPT ---
EXAM DATE: 01/10/2018 12:55 AM EDT AGE/SEX: 57 years / Male INDICATIONS: Altered mental status. Patient found unresponsive, given Narcan and regained consciousn ess. CLINICAL DATA: This is the patient's initial encounter. Patient reports that signs and symptoms have been present for 1 day and indicates a pain score of 0/10. MEDICAL/SURGICAL HISTORY: None. None. RADIATION DOSE: 32.80 CTDI (mGy) COMPARISON: No prior [place] exams available for comparison. TECHNIQUE: CT of the head without contrast. Using automated exposure control and adjustment of the mA and/or kV according to patient size, radiation dose was kept as low as reasonably achievable to ob tain optimal diagnostic quality images. FINDINGS: Cerebrum: The ventricles are normal for age. There is a small area of low density seen in the genu of the right internal capsule. This likely related to a old lacunar infarct. No evidence of midline s hift, mass lesion, hemorrhage or acute infarction. No extraaxial fluid collections are seen. Posterior Fossa: The cerebellum and brainstem are intact. The 4th ventricle is midline. The cerebe llopontine angle is unremarkable. Extracranial: The visualized portion of the orbits is intact. There is bilateral frontal, bilateral ethmoid, bilateral maxillary and left sphenoid sinus disease. Skull: The calvaria is intact. No evidence of skull fracture. CONCLUSION: 1. No acute intracranial abnormality is seen. 2. A lacunar infarct at the right internal capsule. 3. Sinus disease. Electronically signed by: Jerde Horta MD 01/10/2018 1:00 AM EDT
[2018-01-10 01:18] LABS: ACETAMINOPHEN 10.6 MCG/ML (10.0-30.0); ALBUMIN 3.5 GM/DL (3.4-5.0); ALKALINE PHOSPHATASE 94 U/L (45-117); ALT (GPT) 30 U/L (12-78); AST (GOT) 33 U/L (15-37); BICARBONATE 26.1 MEQ/L (21.0-32.0); BLOOD UREA NITROGEN 11 MG/DL (7-18); CALCIUM 8.8 MG/DL (8.5-10.1); CHLORIDE 93 MEQ/L (98-107); CREATININE 0.67 MG/DL (0.60-1.30); GLOMERULAR FILTRATION RATE 122 ML/MIN (>89); GLUCOSE,RANDOM 117 MG/DL (74-106); MAGNESIUM 1.9 MG/DL (1.5-2.5); SODIUM (NA) 132 MEQ/L (136-145); TOTAL BILIRUBIN ADULT 0.5 MG/DL (0.2-1.0); TOTAL PROTEIN 7.4 GM/DL (6.4-8.2); TROPONIN I LESS THAN 0.02 NG/ML (0.02-0.05)
[2018-01-10 04:34] VITALS: BP 147/70; PULSE 60; RESP 16; O2SAT 96
[2018-01-10 06:07] VITALS: BP 159/83; PULSE 54; RESP 20; O2SAT 98
--- NOTE | 2018-01-10 09:26 | PD ---
Physical Exam Date Seen by Provider: Jan 10, 2018 Narrative This patient was here as a sleep it off. He is now up walking around and stable for discharge. Data Data Last Documented VS Vital Signs Date Time Temp Pulse Resp B/P (MAP) Pulse Ox O2 Delivery O2 Flow Rate FiO2 01/10/18 06:07 54 20 159/83 (108) 98 2.00 01/10/18 04:34 Room Air 01/09/18 22:49 98.5 Orders Orders Complete Blood Count With Diff (01/09/18 22:57) Comprehensive Metabolic Panel (01/09/18 22:57) Drug Screen, Random Urine (01/09/18 22:57) Alcohol (Ethanol) (01/09/18 22:57) Salicylates (Aspirin) (01/10/18 00:12) Electrocardiogram (01/10/18 ) Sodium Chlor 0.9% 1000 Ml Inj (Ns 1000 M (01/10/18 00:15) Ct Brain W/O Iv Contrast(Rout) (01/10/18 ) Tylenol (Acetaminophen) (01/09/18 23:45) Ckmb (Isoenzyme) Profile (01/09/18 23:45) Magnesium (Mg) (01/09/18 23:45) Troponin I (01/09/18 23:45) CKMB (01/09/18 23:45) CKMB% (01/09/18 23:45) Diet Regular Basic (01/10/18 Breakfast) Electrocardiogram (01/10/18 00:42) Ed Discharge Order (01/10/18 09:26) Labs Laboratory Tests Test 01/09/18 23:45 01/10/18 02:00 White Blood Count 13.5 TH/MM3 Red Blood Count 4.49 MIL/MM3 Hemoglobin 15.1 GM/DL Hematocrit 44.4 % Mean Corpuscular Volume 99.0 FL Mean Corpuscular Hemoglobin 33.6 PG Mean Corpuscular Hemoglobin Concent 34.0 % Red Cell Distribution Width 13.6 % Platelet Count 220 TH/MM3 Mean Platelet Volume 8.2 FL Neutrophils (%) (Auto) 86.5 % Lymphocytes (%) (Auto) 5.4 % Monocytes (%) (Auto) 7.0 % Eosinophils (%) (Auto) 0.6 % Basophils (%) (Auto) 0.5 % Neutrophils # (Auto) 11.6 TH/MM3 Lymphocytes # (Auto) 0.7 TH/MM3 Monocytes # (Auto) 0.9 TH/MM3 Eosinophils # (Auto) 0.1 TH/MM3 Basophils # (Auto) 0.1 TH/MM3 CBC Comment DIFF FINAL Differential Comment Blood Urea Nitrogen 11 MG/DL Creatinine 0.67 MG/DL Random Glucose 117 MG/DL Total Protein 7.4 GM/DL Albumin 3.5 GM/DL Calcium Level 8.8 MG/DL Magnesium Level 1.9 MG/DL Alkaline Phosphatase 94 U/L Aspartate Amino Transf (AST/SGOT) 33 U/L Alanine Aminotransferase (ALT/SGPT) 30 U/L Total Bilirubin 0.5 MG/DL Sodium Level 132 MEQ/L Potassium Level 4.2 MEQ/L Chloride Level 93 MEQ/L Carbon Dioxide Level 26.1 MEQ/L Anion Gap 13 MEQ/L Estimat Glomerular Filtration Rate 122 ML/MIN Total Creatine Kinase 130 U/L Creatine Kinase MB 3.1 NG/ML Troponin I LESS THAN 0.02 NG/ML Salicylates Level 2.5 MG/DL Acetaminophen Level 10.6 MCG/ML Ethyl Alcohol Level LESS THAN 3 MG/DL Urine Opiates Screen POS Urine Barbiturates Screen NEG Urine Amphetamines Screen NEG Urine Benzodiazepines Screen NEG Urine Cocaine Screen POS Urine Cannabinoids Screen NEG MDM Supervised Visit with RAPHAEL: No Diagnosis Primary Impression: Polysubstance abuse Additional Impression: Overdose Qualified Codes: T50.901A - Poisoning by unspecified drugs, medicaments and biological substances, accidental (unintentional), initial encounter Scripts No Active Prescriptions or Reported Meds Danisha Vizcaino MD Jan 10, 2018 09:26
--- NOTE | 2018-01-10 16:57 | EKG ---
Date Performed: 01/09/2018 Time Performed: 22:54:39 PTAGE: 57 years EKG: Sinus rhythm POSSIBLE LEFT ATRIAL ENLARGEMENT BORDERLINE RIGHT AXIS DEVIATION MODERATE INTRAVENTRICULAR CONDUCTIO N DELAY SLIGHT ST-T WAVE CHANGE ANTEROLATERALLY Compared to previous tracing, axis is slightly more r ightward. Early Repolarization changes seen in previous tracings no longer present BORDERLINE ECG PREVIOUS TRACING : 06/27/2014 04.22 DOCTOR: Bhavik Nguyen Interpretating Date/Time 01/10/2018 16:56:13
--- NOTE | 2018-01-10 16:58 | EKG ---
Date Performed: 01/10/2018 Time Performed: 00:42:28 PTAGE: 57 years EKG: Sinus rhythm LEFT ATRIAL ENLARGEMENT MARKED RIGHT AXIS DEVIATION NONSPECIFIC T-WAVE ABNORMALITY Compared to previ ous tracing, ST-T wave change anterolaterally has improved ABNORMAL ECG PREVIOUS TRACING : 01/09/2018 22.54 DOCTOR: Bhavik Nguyen Interpretating Date/Time 01/10/2018 16:57:31
== END 2018-01-10 09:46 | disposition home or self-care (01) ==
LOC: NEPC 22:41 → NEPD 01-10 09:46
DX: F19.10 Other psychoactive substance abuse, uncomplicated (principal); T50.901A Poisoning by unspecified drugs, medicaments and biological substances, accidental (unintentional), initial encounter; F17.200 Nicotine dependence, unspecified, uncomplicated; R94.31 Abnormal electrocardiogram [ECG] [EKG]
CPT/HCPCS: 70450; 80053; 80307; 82550; 82552; 83735; 84484; 85025; 93005; 96360; 99285; J7030

== ENCOUNTER 2018-01-16 13:25 | Emergency (ER) | payer MEDICARE, OTHER ==
[~2018-01-16] VITALS: Ht 177.8 cm; Wt 75.0 kg
[2018-01-16 13:36] VITALS: BP 129/73; PULSE 71; RESP 18; TEMP 98.7; O2SAT 97
--- NOTE | 2018-01-16 13:48 | PD ---
HPI Chief Complaint: Skin Problem Time Seen by Provider: 13:44 Travel History International Travel<30 days: No Contact w/Intl Traveler<30days: No Traveled to known affect area: No History of Present Illness HPI 49-year-old male with history of significant CAD, polysubstance abuse, presents emergency department for evaluation of a a painful reddened area in his left antecubital space. Patient states he had a friend inject heroin a week ago. He states since then a reddened area has developed. He states it is painful, sore, moderate in severity. It does not radiate anywhere. She denies any limitations in range of motion. She denies any fever or chills. He has no other symptoms to report at this time. PFSH Past Medical History Arthritis: Yes Asthma: Yes ( A CHILD) Autoimmune Disease: No Blood Disorders: No Anxiety: No Depression: No Heart Rhythm Problems: No Cancer: No Cardiac Catheterization: No Cardiovascular Problems: Yes (2014 FIVE BYPASS) High Cholesterol: No Chemotherapy: No Chest Pain: No Congestive Heart Failure: No COPD: No Cerebrovascular Accident: No Coronary Artery Disease: Yes Diabetes: No Diminished Hearing: No Endocrine: No Gastrointestinal Disorders: No GERD: No Genitourinary: No Headaches: Yes Hiatal Hernia: No Heparin Induced Thrombocytopen: No Hypertension: No Immune Disorder: No Implanted Vascular Access Dvce: Yes Kidney Stones: No Musculoskeletal: Yes Neurologic: Yes Psychiatric: No Reproductive: No Respiratory: Yes Immunizations Current: Yes Migraines: No Radiation Therapy: No Renal Failure: No Seizures: No Sickle Cell Disease: No Sleep Apnea: No Thyroid Disease: No Ulcer: No Past Surgical History Abdominal Surgery: No AICD: No Arteriovenous Shunt: No Body Medical Devices: PINS IN FEMUR Cardiac Surgery: Yes (CABG X 5) Coronary Artery Bypass Graft: No Ear Surgery: No Endocrine Surgery: No Eye Surgery: No Genitourinary Surgery: No Gynecologic Surgery: No Insulin Pump: No Joint Replacement: No Neurologic Surgery: No Oral Surgery: No Pacemaker: No Thoracic Surgery: No Other Surgery: Yes Social History Alcohol Use: Yes (1 6 PK A WEEK) Tobacco Use: Yes (08/11 PPD) Substance Use: No (QUIT ) Allergies-Medications (Allergen,Severity, Reaction): Coded Allergies: No Known Allergies (Verified Adverse Reaction, Unknown, 01/09/18) Reported Meds & Prescriptions Reported Meds & Active Scripts Active Keflex (Cephalexin) 500 Mg Cap 500 Mg PO Q6H 5 Days Bactrim DS (Sulfamethoxazole-Trimethoprim) 800-160 Mg Tab 1 Tab PO BID Review of Systems Except as stated in HPI: all other systems reviewed are Neg Physical Exam Narrative GENERAL: Well-nourished, well-developed male patient in no acute distress SKIN: Focused skin assessment warm/dry. 3 cm in diameter area of induration left cubital space. No fluctuance. No drainage. HEAD: Normocephalic. EYES: No scleral icterus. No injection or drainage. NECK: Supple, trachea midline. No JVD or lymphadenopathy. CARDIOVASCULAR: Regular rate and rhythm without murmurs, gallops, or rubs. RESPIRATORY: Breath sounds equal bilaterally. No accessory muscle use. MUSCULOSKELETAL: No cyanosis, or edema. Patient has full flexion-extension of the left elbow. Distal pulses are palpable. Cap refills within normal limits. Data Data Last Documented VS Vital Signs Date Time Temp Pulse Resp B/P (MAP) Pulse Ox O2 Delivery O2 Flow Rate FiO2 01/16/18 13:36 98.7 71 18 129/73 (91) 97 Orders Orders Ed Discharge Order (01/16/18 14:05) MDM Medical Decision Making Medical Screen Exam Complete: Yes Emergency Medical Condition: Yes Medical Record Reviewed: Yes Differential Diagnosis Cellulitis versus abscess versus erysipelas versus local reaction Narrative Course 57-year-old male presents emergency department for evaluation of a painful area in his left antecubital space after injecting heroin. Bedside ultrasound is placed on the area and there is no abscess to drain at this time. Patient is counseled on care and advised to return in 24 hours for reevaluation of the area. He will be started on oral antibiotics. He agrees to return immediately with acute worsening symptoms. Diagnosis Primary Impression: IV drug abuse Additional Impression: Cellulitis of left upper arm Referrals: Primary Care Physician Patient Instructions: Cellulitis (GEN), General Instructions Additional Instructions: Warm compresses to the affected area Stop using IV drugs Return in 24 hours for reevaluation Start your antibiotic today and take them until they are all gone Return immediately with acute worsening of symptoms Med/Other Pt SpecificInfo: Prescription(s) given Scripts Cephalexin (Keflex) 500 Mg Cap 500 MG PO Q6H for Infection for 5 Days, #20 CAP 0 Refills Prov: Deedee Motta 01/16/18 Sulfamethoxazole-Trimethoprim (Bactrim DS) 800-160 Mg Tab 1 TAB PO BID for Infection, #20 TAB 0 Refills Prov: Deedee Motta 01/16/18 Disposition: 01 DISCHARGE HOME Condition: Stable Deedee Motta Jan 16, 2018 13:48
[2018-01-16] MEDS ORDERED: CEPH-460 PO (14:07)
[2018-01-16] MEDS ORDERED: BACT800T5 PO (14:07)
== END 2018-01-16 14:17 | disposition home or self-care (01) ==
LOC: NEPD 13:25
DX: L03.114 Cellulitis of left upper limb (principal); F19.10 Other psychoactive substance abuse, uncomplicated; F17.200 Nicotine dependence, unspecified, uncomplicated; Z86.79 Personal history of other diseases of the circulatory system; Z87.39 Personal history of other diseases of the musculoskeletal system and connective tissue; Z86.69 Personal history of other diseases of the nervous system and sense organs
CPT/HCPCS: 99283

== ENCOUNTER 2018-01-17 12:35 | Emergency (ER) | payer MEDICARE, OTHER ==
[~2018-01-17 12:35] MED LIST changes: +BACT800T5 PO; +CEPH-460 PO; -MEDR4PAK PO; -NAPR500T2 PO; -WALKER/ADULT/FO1 MIS
[2018-01-17 12:52] VITALS: BP 135/74; PULSE 74; RESP 16; TEMP 98.8; O2SAT 97
--- NOTE | 2018-01-17 13:30 | PD ---
HPI Chief Complaint: Wound/Suture/Staple Re-Check Time Seen by Provider: 13:20 Travel History International Travel<30 days: No Contact w/Intl Traveler<30days: No Traveled to known affect area: No History of Present Illness HPI 57-year-old male presents emergency department for reevaluation of an area in his left antecubital space was a cellulitis secondary to IV drug use. Patient was seen and evaluated yesterday. He was started on oral antibiotics. I&D was not done at the time. Patient states that the area has come to and had has began to drain. He reports moderate pain at the site, exacerbated with flexion of the elbow. He has no fever chills. He has no other symptoms to report. PFSH Past Medical History Arthritis: Yes Asthma: Yes ( A CHILD) Autoimmune Disease: No Blood Disorders: No Anxiety: No Depression: No Heart Rhythm Problems: No Cancer: No Cardiac Catheterization: No Cardiovascular Problems: Yes (2014 FIVE BYPASS) High Cholesterol: No Chemotherapy: No Chest Pain: No Congestive Heart Failure: No COPD: No Cerebrovascular Accident: No Coronary Artery Disease: Yes Diabetes: No Diminished Hearing: No Endocrine: No Gastrointestinal Disorders: No GERD: No Genitourinary: No Headaches: Yes Hiatal Hernia: No Heparin Induced Thrombocytopen: No Hypertension: No Immune Disorder: No Implanted Vascular Access Dvce: Yes Kidney Stones: No Musculoskeletal: Yes Neurologic: Yes Psychiatric: No Reproductive: No Respiratory: Yes Immunizations Current: Yes Migraines: No Radiation Therapy: No Renal Failure: No Seizures: No Sickle Cell Disease: No Sleep Apnea: No Thyroid Disease: No Ulcer: No Past Surgical History Abdominal Surgery: No AICD: No Arteriovenous Shunt: No Body Medical Devices: PINS IN FEMUR Cardiac Surgery: Yes (CABG X 5) Coronary Artery Bypass Graft: No Ear Surgery: No Endocrine Surgery: No Eye Surgery: No Genitourinary Surgery: No Gynecologic Surgery: No Insulin Pump: No Joint Replacement: No Neurologic Surgery: No Oral Surgery: No Pacemaker: No Thoracic Surgery: No Other Surgery: Yes Social History Alcohol Use: Yes (1 6 PK A WEEK) Tobacco Use: Yes (08/11 PPD) Substance Use: No (IVDU) Allergies-Medications (Allergen,Severity, Reaction): Coded Allergies: No Known Allergies (Verified Adverse Reaction, Unknown, 01/09/18) Reported Meds & Prescriptions Reported Meds & Active Scripts Active Keflex (Cephalexin) 500 Mg Cap 500 Mg PO Q6H 5 Days Bactrim DS (Sulfamethoxazole-Trimethoprim) 800-160 Mg Tab 1 Tab PO BID Review of Systems Except as stated in HPI: all other systems reviewed are Neg Physical Exam Narrative GENERAL: Well-nourished, well-developed male patient in no acute distress SKIN: There is an indurated area in the left antecubital which measures about 4 cm in diameter. It is fluctuant and there is a point of purulent drainage. There is a zone of inflammation around it but no lymphangitis. HEAD: Normocephalic. EYES: No scleral icterus. No injection or drainage. NECK: Supple, trachea midline. No JVD or lymphadenopathy. CARDIOVASCULAR: Regular rate and rhythm without murmurs, gallops, or rubs. RESPIRATORY: Breath sounds equal bilaterally. No accessory muscle use. MUSCULOSKELETAL: No cyanosis, or edema. Patient has full flexion-extension of the left elbow. He has supination pronation as well. Distal pulses are palpable. Cap refills within normal limits. BACK: Nontender without obvious deformity. No CVA tenderness. Data Data Last Documented VS Vital Signs Date Time Temp Pulse Resp B/P (MAP) Pulse Ox O2 Delivery O2 Flow Rate FiO2 01/17/18 12:52 98.8 74 16 135/74 (94) 97 Orders Orders Wound Culture And Gram Stain (01/17/18 13:28) Ed Discharge Order (01/17/18 13:29) MDM Medical Decision Making Medical Screen Exam Complete: Yes Emergency Medical Condition: Yes Medical Record Reviewed: Yes Differential Diagnosis Abscess versus cellulitis versus erysipelas versus insect bite Narrative Course 57-year-old male presents emergency department for reevaluation of a cellulitis in his left antecubital space. This has developed into an abscess. I&D is complete. Cultures obtained. Patient is encouraged to f continue taking his oral antibiotics. He agrees to return immediately with acute worsening symptoms Procedures Procedure Narrative INCISION AND DRAINAGE OF ABSCESS: The area was prepped and was sterilely draped. Topical ethyl chloride was used to anesthetize the area. The area was properly anesthetized. A number 10 scalpel was used to make a 11-cm incision across the area of the abscess. Cultures were obtained. The abscess was drained an irrigated with normal saline. Sterile dressing is applied. Patient tolerated this well. Diagnosis Primary Impression: Abscess of arm, left Referrals: Primary Care Physician Patient Instructions: Abscess (GEN), General Instructions Additional Instructions: Continue antibiotics; take them until they are all gone Return to ED with acute worsening of symptoms Med/Other Pt SpecificInfo: No Change to Meds Disposition: 01 DISCHARGE HOME Condition: Stable ÁngelaDeedee ZULAY Jan 17, 2018 13:30
== END 2018-01-17 13:48 | disposition home or self-care (01) ==
LOC: NEPK 12:35
DX: L02.414 Cutaneous abscess of left upper limb (principal); I25.10 Atherosclerotic heart disease of native coronary artery without angina pectoris; Z95.1 Presence of aortocoronary bypass graft; Z79.2 Long term (current) use of antibiotics
CPT/HCPCS: 10060; 87070; 87205

== ENCOUNTER 2018-01-23 08:26 | Emergency (ER) | payer MEDICARE, OTHER ==
[~2018-01-23] VITALS: Ht 180.3 cm; Wt 75.0 kg
[2018-01-23 08:32] VITALS: BP 137/63; PULSE 80; RESP 18; TEMP 98.2; O2SAT 98
[2018-01-23] MEDS ORDERED: CLIN300C5 PO (09:16)
[2018-01-23] MEDS ORDERED: MUPI2OIN TOPICAL (09:16)
--- NOTE | 2018-01-23 09:16 | PD ---
HPI Chief Complaint: Skin Problem Time Seen by Provider: 09:01 Travel History International Travel<30 days: No Contact w/Intl Traveler<30days: No Traveled to known affect area: No History of Present Illness HPI Patient is a 57-year-old male presenting to emergency department for evaluation of abscesses to his left first finger and palm. Patient states he was treated for an abscess to his left AC last week, he reports compliance with antibiotics. He states these 2 lesions popped up 3 days ago. He states the pain is a 3-4 out of 10, sore and aching. Pain is constant, worse with movement. He denies any fever, chills, nausea, vomiting. Patient states that he did a one-time dose of IV heroin prior to the initial abscess starting. He states that he had pain in his friend told him it would help his pain. He denies any continued or recent IV drug use. Symptom onset was gradual, symptoms are mild in nature. PFSH Past Medical History Arthritis: Yes Asthma: Yes ( A CHILD) Cardiovascular Problems: Yes (2014 FIVE BYPASS) Coronary Artery Disease: Yes Headaches: Yes Implanted Vascular Access Dvce: Yes Musculoskeletal: Yes Neurologic: Yes Respiratory: Yes Immunizations Current: Yes Past Surgical History Abdominal Surgery: No AICD: No Arteriovenous Shunt: No Body Medical Devices: PINS IN FEMUR Cardiac Surgery: Yes (CABG X 5) Coronary Artery Bypass Graft: Yes Ear Surgery: No Endocrine Surgery: No Eye Surgery: No Genitourinary Surgery: No Gynecologic Surgery: No Insulin Pump: No Joint Replacement: No Neurologic Surgery: No Oral Surgery: No Pacemaker: No Thoracic Surgery: No Other Surgery: Yes Social History Alcohol Use: Yes (1 6 PK A WEEK) Tobacco Use: Yes (1/2 PPD) Substance Use: No (IVDU) Allergies-Medications (Allergen,Severity, Reaction): Coded Allergies: No Known Allergies (Verified Adverse Reaction, Unknown, 01/09/18) Reported Meds & Prescriptions Reported Meds & Active Scripts Active Keflex (Cephalexin) 500 Mg Cap 500 Mg PO Q6H 5 Days Bactrim DS (Sulfamethoxazole-Trimethoprim) 800-160 Mg Tab 1 Tab PO BID Review of Systems Except as stated in HPI: all other systems reviewed are Neg Skin: Positive Lesions Physical Exam Narrative GENERAL: Well-developed, well-nourished, well-kept male. Presenting in no acute distress. SKIN: Warm and dry. Scabbed, purulent lesion to lateral aspect of left second finger, scabbed, purulent lesion to the base of the fifth MCP on the palmar aspect. Healing incision to left AC, no erythema or induration noted. No foul odor or drainage noted. HEAD: Normocephalic. EYES: No scleral icterus. No injection or drainage. NECK: Supple, trachea midline. No JVD or lymphadenopathy. CARDIOVASCULAR: Regular rate and rhythm without murmurs, gallops, or rubs. RESPIRATORY: Breath sounds equal bilaterally. No accessory muscle use. GASTROINTESTINAL: Abdomen soft, non-tender, nondistended. MUSCULOSKELETAL: No cyanosis, or edema. BACK: Nontender without obvious deformity. No CVA tenderness. Data Data Last Documented VS Vital Signs Date Time Temp Pulse Resp B/P (MAP) Pulse Ox O2 Delivery O2 Flow Rate FiO2 01/23/18 08:32 98.2 80 18 137/63 (87) 98 Orders Orders Wound Culture And Gram Stain (01/23/18 09:08) [facility] Medical Decision Making Medical Screen Exam Complete: Yes Emergency Medical Condition: Yes Medical Record Reviewed: Yes Interpretation(s) Vital Signs Date Time Temp Pulse Resp B/P (MAP) Pulse Ox O2 Delivery O2 Flow Rate FiO2 01/23/18 08:32 98.2 80 18 137/63 (87) 98 Differential Diagnosis Abscess versus cellulitis versus impetigo versus other Narrative Course Patient is a 57-year-old male presenting to emerge department for evaluation of possible abscesses to his hand and finger. Areas are draining on their own, wound culture obtained. No indication for I&D at this time. Medical records reviewed, microbiology report from previous wound culture is unremarkable. Patient currently is on Bactrim and Keflex. He has 1 day left. Patient will be given clindamycin at this time. He is encouraged to keep wound clean and dry , covered. He will also be given a prescription for mupirocin ointment, he was encouraged to apply twice daily. He was encouraged to follow-up at the [facility] clinic. He was advised to not use IV drugs for pain control anymore. He was encouraged return to emergency department for any new or worsening symptoms. Patient verbalized understanding of instructions. Patient stable for discharge. Diagnosis Primary Impression: Abscess Referrals: [facility] 3 days Patient Instructions: Abscess (ED), General Instructions Additional Instructions: Follow-up with your primary doctor or at the [facility]. Do not use IV heroin for pain control Use acetaminophen or ibuprofen as needed and as directed for pain Complete full course of antibiotics as prescribed Return to emergency department for any new or worsening symptoms Med/Other Pt SpecificInfo: Prescription(s) given Scripts Mupirocin Topical (Mupirocin Topical) 2 % Oint 1 APPLIC TOPICAL BID for Mgmt Bacterial Infection, #22 GM 0 Refills Prov: Vanda Bowden 01/23/18 Clindamycin (Clindamycin) 300 Mg Cap 300 MG PO TID for Infection, #10 CAP 0 Refills Prov: Vanda Bowden 01/23/18 Disposition: 01 DISCHARGE HOME Condition: Stable Vanda Bowden Jan 23, 2018 09:16
== END 2018-01-23 09:43 | disposition home or self-care (01) ==
LOC: NEPD 08:26
DX: L02.512 Cutaneous abscess of left hand (principal); M19.90 Unspecified osteoarthritis, unspecified site; J45.909 Unspecified asthma, uncomplicated; I25.10 Atherosclerotic heart disease of native coronary artery without angina pectoris; F17.200 Nicotine dependence, unspecified, uncomplicated
CPT/HCPCS: 87070; 87205; 99283